=== PATIENT | male | born 1990 | race Caucasian/White ===

== ENCOUNTER 2017-01-08 09:10 | Emergency (ER) | payer SELFPAY ==
[2017-01-08] MEDS ORDERED: HYDROCODONE/ACETAMINOPHEN 5-325 MG 6 TAB/DSPK PO PRN (10:22)
--- NOTE | 2017-01-08 10:24 | ER Document Report ---
ED ENT - General Chief Complaint: Ear Pain Stated Complaint: LEFT EAR PAIN Time Seen by Provider: 01/08/17 10:05 Mode of Arrival: Ambulatory Information source: Patient Notes: 26-year-old male presents to ED for left ear and jaw pain. He states whenever he bites down on food or tries to sleep the pain gets worse. He states he cannot sleep due to the pain. There is no swelling to his tongue. He states he thought he had been biting his tongue but it is not swollen. There is no difficulty in breathing or swallowing. Patient speaking in full sentences. TRAVEL OUTSIDE OF THE [place] IN LAST 30 DAYS: No - HPI Onset: Last week Onset/Duration: Gradual Quality of pain: Achy, Dull Severity: Severe Pain Level: 5 Location of pain: Ears, Jaw Associated symptoms: Ear pain, Jaw pain. denies: Jaw swelling Similar symptoms previously: Yes Recently seen / treated by doctor: No - Related Data Allergies/Adverse Reactions: No Known Allergies Allergy (Verified 01/08/17 09:26) Past Medical History - General Information source: Patient - Social History Smoking Status: Current Every Day Smoker Cigarette use (# per day): Yes - 1-2 cigarettes a day Chew tobacco use (# tins/day): Yes - Half a can a day Smoking Education Provided: Yes - Less than 2 minutes Frequency of alcohol use: Heavy Drug Abuse: None Occupation: Construction Lives with: Grandparent(s) Family History: Arthritis, Hypertension, Malignancy. denies: CAD, COPD, CVA, DM , Hyperlipidemia, Thyroid Disfunction Patient has suicidal ideation: No Patient has homicidal ideation: No - Past Medical History Cardiac Medical History: Reports: None Pulmonary Medical History: Reports: Hx Pneumonia EENT Medical History: Reports: None Neurological Medical History: Reports: None Endocrine Medical History: Reports: None Renal/ Medical History: Reports: None Malignancy Medical History: Reports None GI Medical History: Reports: None Musculoskeltal Medical History: Reports Hx Musculoskeletal Trauma Skin Medical History: Reports None Psychiatric Medical History: Reports: None Traumatic Medical History: Reports: None Infectious Medical History: Reports: None Surgical Hx: Negative Past Surgical History: Reports: None - Immunizations Hx Diphtheria, Pertussis, Tetanus Vaccination: Yes Review of Systems - Review of Systems EENT: Ear pain, Other Cardiovascular: No symptoms reported Respiratory: No symptoms reported Gastrointestinal: No symptoms reported Genitourinary: No symptoms reported Male Genitourinary: No symptoms reported Musculoskeletal: No symptoms reported Skin: No symptoms reported Hematologic/Lymphatic: No symptoms reported Neurological/Psychological: No symptoms reported -: Yes All other systems reviewed and negative Physical Exam - Vital signs Vitals: Temp Pulse Resp BP Pulse Ox 98.5 F 73 16 112/77 98 01/08/17 09:20 01/08/17 09:20 01/08/17 09:20 01/08/17 09:20 01/08/17 09:20 Interpretation: Normal - General General appearance: Appears well, Alert - HEENT Head: Normocephalic, Atraumatic Eyes: Normal Pupils: PERRL Notes: Pain to the left TMJ with palpation or movement. Able to speak freely is able to chew with pain. - Respiratory Respiratory status: No respiratory distress Chest status: Nontender Breath sounds: Normal Chest palpation: Normal - Cardiovascular Rhythm: Regular Heart sounds: Normal auscultation Murmur: No - Abdominal Inspection: Normal Distension: No distension Bowel sounds: Normal Tenderness: Nontender Organomegaly: No organomegaly - Back Back: Normal, Nontender - Extremities General upper extremity: Normal inspection, Nontender, Normal color, Normal ROM , Normal temperature General lower extremity: Normal inspection, Nontender, Normal color, Normal ROM , Normal temperature, Normal weight bearing. No: Jose David's sign - Neurological Neuro grossly intact: Yes Cognition: Normal Orientation: AAOx4 Tonia Coma Scale Eye Opening: Spontaneous [place] Coma Scale Verbal: Oriented Tonia Coma Scale Motor: Obeys Commands [place] Coma Scale Total: 15 Speech: Normal Motor strength normal: LUE, RUE, LLE, RLE Sensory: Normal - Psychological Associated symptoms: Normal affect, Normal mood - Skin Skin Temperature: Warm Skin Moisture: Dry Skin Color: Normal Course - Re-evaluation Re-evalutation: 01/08/17 10:27 Patient instructed to use a mouthguard prepared like he was when he played football at nighttime to help help decrease his pain in his left jaw until he can go to an sulfate drier machine operator or dentist and have his jaw evaluated. Patient was given a [place] dispense pack today for his pain and encouraged to use ibuprofen during the day. - Vital Signs Vital signs: Temp Pulse Resp BP Pulse Ox 98.4 F 63 18 108/66 99 01/08/17 10:34 01/08/17 10:34 01/08/17 10:34 01/08/17 10:34 01/08/17 10:34 Discharge - Discharge Clinical Impression: left jaw pain, Otalgia of left ear Condition: Stable Disposition: HOME, SELF-CARE Additional Instructions: You were seen today for left jaw and ear pain. Your tongue is not swollen. I will give you a Everett dispense pack for your pain for the weekend but you need to follow-up with a dentist or sulfate drier machine operator to assess your jaw pain. Use the Everett at night and use ibuprofen during the day. Try using a mouthguard as we discussed to help with the pain. Oral Narcotic Medication You have been given a prescription for pain control. This medication is a narcotic. It's best taken with food, as nausea can result if taken on an empty stomach. Don't operate machinery or drive within six hours of taking this medication. Do not combine this medicine with alcohol, or with any medication which can cause sedation (such as cold tablets or sleeping pills) unless you get permission from the physician. Narcotics tend to cause constipation. If possible, drink plenty of fluids and eat a diet high in fiber and fruits. Ibuprofen Ibuprofen is an excellent, safe drug for pain control. In addition, it has potent antiinflammatory effects which are beneficial, especially in the treatment of injuries, arthritis, or tendonitis. It's best to take ibuprofen with food. Persons with ulcer disease or allergy to aspirin should notify their physician of this before taking ibuprofen. Take the medication exactly as prescribed. Don't take additional doses unless instructed to do so by your doctor. If you develop wheezing, shortness of breath, hives, faintness, stomach pain, vomiting, or dark black stools, return for re-evaluation at once. Ice Packs Apply ice packs frequently against the painful area. Many different schedules are recommended, such as "20 minutes on, 20 minutes off" or "one hour ice, two hours rest." If you need to work, you may need to go longer between ice treatments. You should plan to have the area ice packed AT LEAST one fourth of the time. The ice should be applied over the wrap, tape, or splint, or over a layer of cloth -- not directly against the skin. Some ice bags have a built-in cloth and can be put directly on the skin. FOLLOW-UP CARE: You have been referred for follow-up care to the dentists listed below. Call the dentists office for an appointment as you were instructed or within the next two days. If you experience worsening or a significant change in your symptoms, notify the physician immediately or return to the Emergency Department at any time for re-evaluation. [facility] [address] [place], [place] mornings, by appointment [facility] [address] [place] [address] [facility] [place] [address] [facility] [address] [facility] [address] [facility] [address] [email or web address] [address] [place] [address] Tuesday- 8:00am to 5:00 pm Will see patients from other [facility]. Charges based on income and family size and accepts Medicare, Medicaid, and Insurances Will pull molars [facility] [address] Hours of Operation 8:00 am - 4:30 pm weekdays The following dental offices accept Medicaid: [facility] Dr. Arevalo Dr. Adams Dr. Cat Dr. Johnson Simone Alvarado [place], and [facility] Dr. Villeda ([place]) Dr. Loyola ([place]) [facility] Drs. Gan and Isak ([place]) Dr. Galaviz ([place]) [facility] Dr. Lopez ([place]) Drs. Foster and ([place]) Medicaid Care Line
[2017-01-08 10:35] VITALS: BP 108/66
== END 2017-01-08 10:36 | disposition home or self-care (01) ==
LOC: ER 09:10
DX: H92.02 Otalgia, left ear (principal); R68.84 Jaw pain; F17.210 Nicotine dependence, cigarettes, uncomplicated
CPT/HCPCS: 99282

== ENCOUNTER 2017-06-17 18:19 | Emergency (ER) | payer SELFPAY ==
[2017-06-17 20:25] LABS: ABSOLUTE EOSINOPHILS # (AUTO) 0.1 10^3/uL (0.0-0.6); ABSOLUTE LYMPHOCYTES (AUTO) 2.6 10^3/uL (0.5-4.7); ABSOLUTE MONOCYTES (AUTO) 1.1 10^3/uL (0.1-1.4); ABSOLUTE NEUT (AUTO) 3.7 10^3/uL (1.7-8.2); BASOPHILS % (AUTO) 0.1 % (0-2); EOSINOPHILS % (AUTO) 0.9 % (0-6); HEMATOCRIT 48.7 % (37.9-51.0); LYMPHOCYTES % (AUTO) 35.1 % (13-45); MEAN CORPUSCULAR HEMOGLOBIN 33.6 pg (27.0-33.4); MEAN CORPUSCULAR HGB CONC 34.9 g/dL (32.0-36.0); MEAN CORPUSCULAR VOLUME 96 fl (80-97); MONOCYTES % (AUTO) 14.5 % (3-13); PLATELET COUNT 357 10^3/uL (150-450); RED BLOOD COUNT 5.06 10^6/uL (4.35-5.55); RED CELL DISTRIBUTION WIDTH 14.1 % (11.5-14.0); SEGMENTED NEUTROPHILS % (AUTO) 49.4 % (42-78); TOTAL CELLS COUNTED % (AUTO) 100 %; WHITE BLOOD COUNT 7.4 10^3/uL (4.0-10.5)
[2017-06-17 20:35] LABS: APPEARANCE,URINE CLEAR; BILIRUBIN,URINE NEGATIVE (NEGATIVE); COLOR,URINE STRAW; GLUCOSE, URINE NEGATIVE (NEGATIVE); KETONES,URINE NEGATIVE (NEGATIVE); LEUKOCYTE ESTERASE,URINE NEGATIVE (NEGATIVE); NITRITE,URINE NEGATIVE (NEGATIVE); PROTEIN,URINE NEGATIVE (NEGATIVE); URINE SPECIFIC GRAVITY 1.004
[2017-06-17 20:45] LABS: ALANINE AMINOTRANSFERASE 386 U/L (21-72); ALBUMIN 4.3 g/dL (3.5-5.0); ALCOHOL 195 mg/dL (NONE DETECTED); ALKALINE PHOSPHATASE 129 U/L (38-126); ANION GAP 11 (5-19); ASPARTATE AMINO TRANSFERASE 244 U/L (17-59); BILIRUBIN,DIRECT 0.8 mg/dL (0.0-0.4); BILIRUBIN,TOTAL 1.1 mg/dL (0.2-1.3); BLOOD UREA NITROGEN 7 mg/dL (7-20); CALCIUM 9.3 mg/dL (8.4-10.2); CARBON DIOXIDE 29 mmol/L (22-30); CHLORIDE 104 mmol/L (98-107); GLUCOSE 110 mg/dL (75-110); POTASSIUM 4.3 mmol/L (3.6-5.0); SODIUM 143.8 mmol/L (137-145)
[2017-06-17 20:53] LABS: ACETAMINOPHEN < 10 ug/mL (10-30); SALICYLATE < 1.0 mg/dL (2.0-20.0)
[2017-06-17 21:10] LABS: URINE AMPHETAMINES SCREEN NEGATIVE; URINE BARBITURATES SCREEN NEGATIVE; URINE BENZODIAZEPINES SCREEN NEGATIVE; URINE COCAINE SCREEN NEGATIVE; URINE MARIJUANA (THC) SCREEN NEGATIVE; URINE METHADONE SCREEN NEGATIVE; URINE PHENCYCLIDINE SCREEN NEGATIVE
--- NOTE | 2017-06-18 01:09 | ER Document Report ---
ED General - General Chief Complaint: Psych Problem Stated Complaint: THROAT LACERATION Time Seen by Provider: 06/17/17 19:27 TRAVEL OUTSIDE OF THE U.S. IN LAST 30 DAYS: No - HPI Patient complains to provider of: Suicide attempt Notes: Report given to the patient was found down arousable pneumonia after drinking a large amount of alcohol with a bandage around his neck. Removal of the band showed multiple superficial abrasions. Upon my evaluation patient is alert patient states he used a file to try to cut his throat and apparent suicide attempt. Patient states he is a recovering drug abuser patient states he is to use opiates. Patient states he has been very upset with his family over the last few days upon further questioning patient becomes very upset and agitated hyperverbal screaming and yelling stating that he has no hope. Patient was easily calmed down by offering him something to eat and drink. Patient otherwise denies any current medical issues. Denies any homicidal ideation. - Related Data Allergies/Adverse Reactions: No Known Allergies Allergy (Verified 01/08/17 09:26) Past Medical History - Social History Smoking Status: Current Some Day Smoker Chew tobacco use (# tins/day): No Frequency of alcohol use: Heavy Drug Abuse: Other Family History: Arthritis, Hypertension, Malignancy. denies: CAD, COPD, CVA, DM , Hyperlipidemia, Thyroid Disfunction Patient has suicidal ideation: Yes Patient has homicidal ideation: No Pulmonary Medical History: Reports: Hx Pneumonia Renal/ Medical History: Denies: Hx Peritoneal Dialysis Musculoskeltal Medical History: Reports Hx Musculoskeletal Trauma Psychiatric Medical History: Reports: Hx Depression - Immunizations Hx Diphtheria, Pertussis, Tetanus Vaccination: Yes Review of Systems - Review of Systems Constitutional: No symptoms reported EENT: No symptoms reported Cardiovascular: No symptoms reported Respiratory: No symptoms reported Gastrointestinal: No symptoms reported Genitourinary: No symptoms reported Male Genitourinary: No symptoms reported Musculoskeletal: No symptoms reported Skin: No symptoms reported Hematologic/Lymphatic: No symptoms reported Neurological/Psychological: Suicidal ideation -: Yes All other systems reviewed and negative Physical Exam - Vital signs Vitals: Temp Pulse Resp BP Pulse Ox 98.7 F 70 16 146/89 H 96 06/17/17 18:45 06/17/17 18:45 06/17/17 18:45 06/17/17 18:45 06/17/17 18:45 Interpretation: Normal - General General appearance: Appears well, Alert - HEENT Head: Normocephalic, Atraumatic Eyes: Normal Conjunctiva: Normal Cornea: Normal Pupils: PERRL Neck: Other - Examination of the anterior neck shows multiple superficial abrasions some going to the dermis but none going to the platysma. There is no hematoma or expansion of hematoma on evaluation of the patient. Patient's airway is intact patient is able tolerate food and drink at this time. No other abrasions are seen on examination. - Respiratory Respiratory status: No respiratory distress Chest status: Nontender Breath sounds: Normal Chest palpation: Normal - Cardiovascular Rhythm: Regular Heart sounds: Normal auscultation Murmur: No - Abdominal Inspection: Normal Distension: No distension Bowel sounds: Normal Tenderness: Nontender Organomegaly: No organomegaly - Back Back: Normal, Nontender - Extremities General upper extremity: Normal inspection, Nontender, Normal color, Normal ROM , Normal temperature General lower extremity: Normal inspection, Nontender, Normal color, Normal ROM , Normal temperature, Normal weight bearing. No: Jose David's sign - Neurological Neuro grossly intact: Yes Cognition: Normal Orientation: AAOx4 Tonia Coma Scale Eye Opening: Spontaneous Tonia Coma Scale Verbal: Oriented [place] Coma Scale Motor: Obeys Commands [place] Coma Scale Total: 15 Speech: Normal Motor strength normal: LUE, RUE, LLE, RLE Sensory: Normal - Psychological Associated symptoms: Normal affect, Normal mood - Skin Skin Temperature: Warm Skin Moisture: Dry Skin Color: Normal Course - Re-evaluation Re-evalutation: 06/18/17 01:07 Patient apparent suicide attempt multiple superficial lacerations to the neck. These were cleaned and Steri-Strips applied. Laboratory values that showed elevated alcohol in the patient's system. Otherwise laboratory values not show any signs of significant pathology. Patient does have elevated liver function tests which could be related to his alcohol use. Patient will be monitored here in ER otherwise medically cleared for psychiatric evaluation in the morning. Patient was placed on IVC paperwork. - Vital Signs Vital signs: Temp Pulse Resp BP Pulse Ox 98.7 F 78 18 129/90 H 99 06/17/17 18:45 06/17/17 22:18 06/17/17 22:18 06/17/17 22:18 06/17/17 22:18 - Laboratory Result Diagrams: 06/17/17 20:10 06/17/17 19:27 Laboratory results interpreted by me: 06/17/17 06/17/17 06/17/17 18:35 19:27 20:10 MCH 33.6 H RDW 14.1 H Monocytes % 14.5 H Direct Bilirubin 0.8 H AST 244 H ALT 386 H Alkaline Phosphatase 129 H Urine Urobilinogen 2.0 H Salicylates < 1.0 L Acetaminophen < 10 L Discharge - Discharge Clinical Impression: Suicide attempt, Superficial abrasions multiple Acute alcohol intoxication Qualifiers: Complication of substance-induced condition: uncomplicated Qualified Code(s): F10.929 - Alcohol use, unspecified with intoxication, unspecified Condition: Fair Disposition: PSYCH HOSP/UNIT
--- NOTE | 2017-06-18 09:01 | EKG REPORT ---
SEVERITY:- NORMAL ECG - SINUS RHYTHM : Confirmed by: Kye Burgos MD 18-Jun-2017 09:00:49
--- NOTE | 2017-06-18 09:58 | ER Document Report ---
Doctor's Note Notes: 06/18/17 09:57 26-year-old male who presents today being seen initially yesterday for alcohol intoxication as well as superficial lacerations/abrasions to his neck with transaminitis and suicidal ideations. Vital signs stable. Patient is calm and cooperative at this time. Pending psychiatric/psychological evaluation. 06/18/17 16:34 Still awaiting placement. Patient is still calm and cooperative.
--- NOTE | 2017-06-18 12:38 | PSYCHOLOGICAL NOTE ---
Psych Note - Psych Note Psych Note: Reason for consult: Suicidal ideation, attempt; IVC Consent permissions: mother, Chelly at [phone] Patient was brought to the emergency department via ambulance due to superficial abrasions and 2 lacerations to his neck which required steri- strips. Patient tried to commit suicide after drinking alcohol by taking a metal file to his neck multiple times. Patient reports that he is a recovering addict and has not been using opiates in the last year and a half; stating, "I' ve been clean for a long time." He claimed that there was no one reason for him to try and commit suicide, "it was a bunch of things." However, he disclosed family continually accusing him of relapsing "I have even bought 2 testing kits to prove" and stated any little thing he may do out of the "normal" the think he is high; "I can put mustard on a sandwich and normally not and they assume i did it because I am high." After speaking about his suicide attempt, he admits that he regrets it, but "does not see any other way." He reports that his family still views him as a drug addict and he has no social support. He only has one friend that is not a drug addict. "I thought the hard part would be the withdrawal...it isn't... it's the emotional...figuring out your true self without drugs" and understanding relationships. He does not have a job nor a vehicle for transportation. He currently lives with his "boss" but there are problems with that living arrangement. Patient denies any mental illness in his family. He did mention that he was on Prozac a while ago and had been to [facility] 3 times about 2.5 years ago. Patient was alert and oriented to person, time, place, and circumstance, with no obvious memory impairment. His attention seemed distracted as evidenced by his lack of eye contact throughout the evaluation. Speech was clear, but rapid. His affect was full and congruent with his mood which was irritable when talking about family. He was cooperative with staff and was more than eager to divulge information regarding his situation. There was noticeable psychomotor agitation present. Patient currently denies any suicidal or homicidal ideation. Both insight and judgment are poor. Medication Recommendations: Medication recommendations per [facility]'s contracted psychiatrist, MD Dolly, are as follows 1. Effexor 37.5 mg twice daily 2. BuSpar 10 mg twice daily 3. Vistaril 50 mg every 6 as needed Diagnosis: 292.84 (F11.24) Substance-Induced Depressive Disorder; withdrawal onset Opioid with hx of sever use 303.90 (F10.20) Alcohol Abuse Disorder; severe Impression/plan: Patient is recommended to continue under IVC. Patient discloses continued despondent and has little support system. Patient has been sober for proximally 1-1/2 years and stated "this is why 1 of 2 things occur they either go back on drugs or they kill themselves." Patient took a metal file and made multiple superficial abrasions and 2 lacerations to his neck which required steri-strips. Patient is able to demonstrate insight on his difficulties but is unable to use coping skills and control his impulses to keep himself safe. Patient will be re-evaluated. Dr. Voss was consulted on the care and management of this patient; attending physician is in agreement with recommendations and dispositions.
[2017-06-18] MEDS: HYDROXYZINE PAMOATE 50 MG CAPSULE PO SCH ×2 (15:31→18:10)
[2017-06-18] MEDS: BUSPIRONE HCL 10 MG TABLET PO SCH (18:11)
[2017-06-18] MEDS: VENLAFAXINE HCL 37.5 MG CAP.SR.24H PO SCH (18:11)
[2017-06-19] MEDS: HYDROXYZINE PAMOATE 50 MG CAPSULE PO SCH ×3 (08:33→17:53)
[2017-06-19] MEDS: BUSPIRONE HCL 10 MG TABLET PO SCH ×2 (10:07→17:53)
[2017-06-19] MEDS: VENLAFAXINE HCL 37.5 MG CAP.SR.24H PO SCH ×2 (10:07→17:53)
--- NOTE | 2017-06-19 10:52 | ER Document Report ---
Doctor's Note Notes: 06/19/17 10:52 26-year-old male who presents today being seen initially yesterday for alcohol intoxication as well as superficial lacerations/abrasions to his neck with transaminitis and suicidal ideations. Vital signs stable. Patient is calm and cooperative at this time. Psychiatry has seen and evaluated the patient and does not want to resend IVC. The [facility] and we are waiting for possibility of placement there tomorrow.
--- NOTE | 2017-06-19 12:29 | PSYCHOLOGICAL NOTE ---
<MANUEL DICKSON - Last Filed: 06/19/17 13:44> Psych Note - Psych Note Psych Note: Reason for consult: Suicidal ideation/ re-evaluation Consent: Mother, Chelly and Father Mikey Patient is a 26 year old male. Patient denies SI/HI. Patient reports he is no longer interested in going to [employer]. Patient reports [employer] is a trigger for him as it is a reminder of when he was addicted to heroin/ painkillers. Patient reports he has been sober in regards to Heroin and prescription pills ( not pre-scribed) for 2 consecutive years. Patient reports he had no intention in killing himself when he cut his throat multiple times, and stated that he intentionally used something "dull" because he wanted to show enough blood, but not cut deep enough to kill himself. Patient reports at the time he really wanted his family back in his life and thought this was the only way to get their attention and let them know that he was serious and really needed both his mom and dad back in his life. Patient reports he had a fall out with his parents due to prior substance use and continuously relapsing that he lost the trust and connection with his family. Patient reports that he got his life together and stayed sober and even went through great lengths such as living in an abandoned house so he would not be around people/ old friends who were still using. Patient reports that he had several friends from substance use and he intends on not dying because he wants to live. Patient reports he would do "it" [ referring to cutting his neck] again if it got his family back in his life because he is happy that his mom and dad are talking to him again, and happy that other extended family members ( and log cutter) called to check on him because he feels cared for. Patient reports his dad has a house for him under his dad's name and as well as farm land , that is what he needed. Patient reports he wants his family to know that his drug screen results came back clean, and that he has been sober so they could trust him again so that he could hopefully move back into his home. Patient states that he was previously kicked out because him and his dad were fighting a lot. Patient reports he wants his family's emotional and moral support not just material objects. Patient reports he is willing to go to treatment. Patient reports when his family does not support him he feels that there is no hope. Collateral Information: mother, Chelly at [phone], Father: Mikey [phone] Patient's mother reports patient has not been honest with the family. Patient's mother reports she believes that if patient actually wanted to kill himself he would have known what to do and would have done it. Patient's mother reports she sees this as a way to get their [ her and her ] attention. Patient's mother reports her and her have been dealing with patient's addiction for 14 years since he was 13 years old. Patient's mother reports that recently patient asked to move back in with them and when they refused he became upset. Patient's mother reports she has spoken with him on the phone and been aware of his whereabouts but does not want him back in the home due to the things he have done in the past to include an incident [place] time of 2016. Patient's mother reports patient has not been clean for 2 years as he stated to hospital staff . Patient's mother reports she believes patient is self-medicating through alcohol use and any other drug, and wants him to seek treatment, and be safe before coming home. Patient's mother reports patient behaves "erratically" . Patient's father reports patient has not been sober as long as patient has told mental health staff, he picked patient up at a store and patient admitted to [facility]. Patient's father reports that he feels patient just wants to come home because he has been kicked out numerous times and that patient is aware his parents are not going to enable him anymore so he did this to have his parents allow him home. Patient's father reports the conditions for him to come home would be to get serious residential treatment where he can be certain that he is changed. Patient's father reports he does not think patient would be honest or stay sober. Patient's father reports patient spent 3 months in custodial and stated that he was forced to be clean then and that it was the most peace their family has had in years. Medication Recommendations: Medication recommendations per [facility]'s contracted psychiatrist, MD Dolly, are as follows 1. Effexor 37.5 mg twice daily 2. BuSpar 10 mg twice daily 3. Vistaril 50 mg every 6 as needed Diagnosis: 292.84 (F11.24) Substance-Induced Depressive Disorder; withdrawal onset Opioid with hx of sever use 303.90 (F10.20) Alcohol Abuse Disorder; severe Impression/plan: Patient is recommended to continue under IVC due to patient meeting criteria [place] GS 122C. Currently seeking inpatient placement. <SYD ADHIKARI - Last Filed: 06/20/17 16:22> Psych Note - Psych Note Psych Note: Patient continues to meet criteria as he attempted to kill himself by cutting his neck while under the influence of benzodiazepines, and has had difficulty with being sober. Patient is considered at high risk for completion of suicide without ongoing inpatient psychiatric treatment.
[2017-06-20] MEDS: HYDROXYZINE PAMOATE 50 MG CAPSULE PO SCH ×2 (00:14→11:32)
--- NOTE | 2017-06-20 10:14 | ER Document Report ---
Doctor's Note Notes: 06/20/17 10:11 Rounds: Chart reviewed. Patient interviewed. Patient says that he was drinking heavily and had suicidal thoughts and attempted to cut his throat. Patient says that he drinks heavily frequently. Alcohol level was 195. His liver function tests are slightly elevated and he was made aware of that finding. He is alert and answers questions appropriately and says he does not feel suicidal at this time. Vital signs are all normal. Patient appears to be medically stable for transfer or discharge. Arlet Mo MD
[2017-06-20] MEDS: VENLAFAXINE HCL 37.5 MG CAP.SR.24H PO SCH (11:32)
[2017-06-20] MEDS: BUSPIRONE HCL 10 MG TABLET PO SCH (11:32)
--- NOTE | 2017-06-20 11:55 | PSYCHOLOGICAL NOTE ---
Psych Note - Psych Note Psych Note: Contact permissions: mother, Chelly at [phone], Father: Mikey [phone] Patient is a 26 year old male. Patient reports he wants to leave the ED. Patient reports he changed his mind about going to a psychiatric facility to treat his depression and substance use. Patient reports he is tired of being in the ED under IVC. Patient stated " all I did was cut my throat, that's all I did it ain't no big deal". Patient reports that he has his aunt that has a connection to help him get into a place called [facility] which is a [facility] treatment facility. Patient reports he does not want to lose his job because he is in the hospital. Patient stated " I'm going to lose everything here, I don't want to wait for treatment". Patient denies SI/HI. Clinician observed patient was upset due to having to wait for a placement in a psychiatric facility. Patient's affect is flat, with a labile mood. Medication Recommendations: Medication recommendations per [facility]'s contracted psychiatrist, MD Dolly, are as follows 1. Effexor 37.5 mg twice daily 2. BuSpar 10 mg twice daily 3. Vistaril 50 mg every 6 as needed Diagnosis: 292.84 (F11.24) Substance-Induced Depressive Disorder; withdrawal onset Opioid with hx of sever use 303.90 (F10.20) Alcohol Abuse Disorder; severe Impression/plan: Patient is recommended to continue under IVC due to patient meeting criteria [place] GS 122C. Currently seeking inpatient placement. Consulted with Dr. Voss regarding the management and care of patient.
[2017-06-20 16:46] VITALS: BP 141/84
== END 2017-06-20 16:45 ==
LOC: ER 18:19
DX: F10.929 Alcohol use, unspecified with intoxication, unspecified (principal); S11.91XA Laceration without foreign body of unspecified part of neck, initial encounter; F17.200 Nicotine dependence, unspecified, uncomplicated; X83.8XXA Intentional self-harm by other specified means, initial encounter
CPT/HCPCS: 93005; 99285; 36415; 80307 ×4; 85025; 80053; 81001; 93010; J3490 ×3

== ENCOUNTER 2018-01-12 07:30 | Emergency (ER) | payer SELFPAY ==
[2018-01-12] MEDS ORDERED: DEXAMETHASONE 4 MG TABLET PO ONE (08:12)
[2018-01-12] MEDS ORDERED: PENICILLIN G BENZATHINE 1.2 MILLION UNIT/2 ML DISP.SYRIN IM ONE (08:12)
[2018-01-12] MEDS ORDERED: LIDOCAINE 2% VISCOUS SOLN 20 ML UDCUP PO ONE (08:12)
[2018-01-12] MEDS ORDERED: HYDROCODONE/ACETAMINOPHEN 5-325 MG TABLET PO ONE (08:14)
--- NOTE | 2018-01-12 08:16 | ER Document Report ---
HPI - HPI Patient complains to provider of: sore throat Onset: Other - 2 d Onset/Duration: Persistent Quality of pain: Achy Pain Level: 4 Context: Patient presents complaining of sore throat for the past 2 days. Patient denies any difficulty breathing or swallowing. Patient denies any fever. Associated Symptoms: Sore throat. denies: Earache, Fever, Headache Exacerbated by: Denies Relieved by: Denies Similar symptoms previously: No Recently seen / treated by doctor: No - ROS ROS below otherwise negative: Yes Systems Reviewed and Negative: Yes All other systems reviewed and negative - CONSTITUTIONAL Constitutional: DENIES: Fever - EENT EENT: REPORTS: Sore Throat - Right tonsil, Ear Pain - RESPIRATORY Respiratory: DENIES: Trouble Breathing, Coughing - GASTROINTESTINAL Gastrointestinal: DENIES: Nausea, Patient vomiting - MUSCULOSKELETAL Musculoskeletal: DENIES: Neck Pain - DERM Skin Color: Normal Skin Problems: None Past Medical History - General Information source: Patient - Social History Smoking Status: Current Every Day Smoker Chew tobacco use (# tins/day): Yes - occassional Frequency of alcohol use: Daily Drug Abuse: None Occupation: heavy equipment technician Lives with: Family Family History: Arthritis, Hypertension, Malignancy. denies: CAD, COPD, CVA, DM , Hyperlipidemia, Thyroid Disfunction Patient has suicidal ideation: No Patient has homicidal ideation: No Pulmonary Medical History: Reports: Hx Pneumonia Renal/ Medical History: Denies: Hx Peritoneal Dialysis Musculoskeletal Medical History: Reports Hx Musculoskeletal Trauma Psychiatric Medical History: Reports: Hx Depression Surgical Hx: Negative - Immunizations Hx Diphtheria, Pertussis, Tetanus Vaccination: Yes Vertical Provider Document - CONSTITUTIONAL Agree With Documented VS: Yes Exam Limitations: No Limitations General Appearance: WD/WN, No Apparent Distress - INFECTION CONTROL TRAVEL OUTSIDE OF THE [place] IN LAST 30 DAYS: No - HEENT HEENT: Atraumatic, Normocephalic, Pharyngeal Exudate, Pharyngeal Tenderness, Pharyngeal Erythema. negative: Tympanic Membrane Red, Tympanic Membrane Bulging - NECK Neck: Normal Inspection, Supple. negative: Lymphadenopathy-Left, Lymphadenopathy-Right - RESPIRATORY Respiratory: Breath Sounds Normal, No Respiratory Distress, Chest Non-Tender - CARDIOVASCULAR Cardiovascular: Regular Rate, Regular Rhythm, No Murmur - BACK Back: Normal Inspection - MUSCULOSKELETAL/EXTREMETIES Musculoskeletal/Extremeties: RENE BRASHER - NEURO Level of Consciousness: Awake, Alert, Appropriate Motor/Sensory: No Motor Deficit - DERM Integumentary: Warm, Dry, No Rash Course - Re-evaluation Re-evalutation: 01/12/18 08:13 Patient's respirations even and unlabored, no potential airway compromise. Patient's right tonsil looks as though it may have had an abscess that spontaneously drained. No obvious peritonsillar cellulitis - Vital Signs Vital signs: Temp Pulse Resp BP Pulse Ox 97.4 F 81 14 131/78 H 99 01/12/18 07:34 01/12/18 07:34 01/12/18 07:34 01/12/18 07:34 01/12/18 07:34 Discharge - Discharge Clinical Impression: Tonsillitis Condition: Stable Disposition: HOME, SELF-CARE Instructions: Corticosteroid Medication ([facility]), Use of [id number]-Nqmistw Ibuprofen ([facility]), Tonsillitis ([facility]) Additional Instructions: Return immediately for any new or worsening symptoms Followup with your primary care provider, call tomorrow to make a followup appointment Forms: Smoking Cessation Education, Return to Work Referrals: [facility] [Provider Group] - Follow up as needed
[2018-01-12 08:50] VITALS: BP 128/79
== END 2018-01-12 08:50 | disposition home or self-care (01) ==
LOC: ER 07:30
DX: J03.90 Acute tonsillitis, unspecified (principal); F17.200 Nicotine dependence, unspecified, uncomplicated
CPT/HCPCS: 99283; 96372; J3490; J0561

== ENCOUNTER 2018-01-13 07:53 | Emergency (ER) | payer SELFPAY ==
--- NOTE | 2018-01-13 09:32 | ER Document Report ---
ED ENT - General Chief Complaint: Sore Throat Stated Complaint: SORE THROAT, SWELLING Time Seen by Provider: 01/13/18 09:16 Notes: Patient was seen here yesterday for sore throat. States it was on the right side. Continues to hurt on the right side but now has moved to the left side. Hurts to swallow. Now having body aches and fever. Denies any rash. Was discharged on symptomatic care yesterday. TRAVEL OUTSIDE OF THE [place] IN LAST 30 DAYS: No - HPI Patient complains to provider of: Throat problem Onset: Yesterday Onset/Duration: Gradual, Worse Quality of pain: Achy Severity: Moderate Pain Level: 3 - Related Data Allergies/Adverse Reactions: No Known Allergies Allergy (Verified 01/13/18 07:54) Past Medical History - General Information source: Patient - Social History Smoking Status: Current Every Day Smoker Chew tobacco use (# tins/day): Yes - occasional Frequency of alcohol use: daily Drug Abuse: None Lives with: Family Family History: Arthritis, Hypertension, Malignancy. denies: CAD, COPD, CVA, DM , Hyperlipidemia, Thyroid Disfunction Patient has suicidal ideation: No Patient has homicidal ideation: No Pulmonary Medical History: Reports: Hx Pneumonia Renal/ Medical History: Denies: Hx Peritoneal Dialysis Musculoskeletal Medical History: Reports Hx Musculoskeletal Trauma Psychiatric Medical History: Reports: Hx Depression - Immunizations Hx Diphtheria, Pertussis, Tetanus Vaccination: Yes Review of Systems - Review of Systems Notes: Constitutional: denies: Chills, Diaphoresis,Malaise, Weakness. Patient does complain of fever and body aches EENT: denies: Eye discharge, Blurred vision, Tearing, Double vision, Nose congestion, Nose discharge,. Patient does complain of a sore throat and swollen tonsils Cardiovascular: denies: Palpitations, Heart racing, Orthopnea, Dyspnea, Chest pain Respiratory: denies: Cough, Hurts to breathe, Wheezing, Shortness of breath Gastrointestinal: denies: Abdominal pain, Diarrhea, Nausea, Vomiting, Black stools, bright red blood in stool Genitourinary: denies: Burning, Dysuria, Discharge, Frequency, Flank pain, Hematuria Musculoskeletal: denies: Joint pain, Joint swelling,. Does complain of joint pain and muscle aches easily. Hematologic/Lymphatic: denies: Anemia, Easy bleeding, Easy bruising, Blood clots Neurological/Psychological: denies: Confusion, Dementia, Depression, Loss of consciousness Skin: No lesions, no masses, no skin breakdown, no abscesses Physical Exam - Vital signs Vitals: Temp Pulse Resp BP Pulse Ox 97.7 F 84 16 121/78 98 01/13/18 08:01 01/13/18 08:01 01/13/18 08:01 01/13/18 08:01 01/13/18 08:01 Interpretation: Normal - General General appearance: Appears well, Alert - HEENT Head: Normocephalic, Atraumatic Eyes: Normal Pupils: PERRL Mucous membranes: Normal Pharynx: Erythema, Tonsillar hypertrophy. No: Exudate, Peritonsillar abscess, Retropharyngeal abscess, Uvular edema Neck: Normal, Shotty nodes - Respiratory Respiratory status: No respiratory distress Chest status: Nontender Breath sounds: Normal Chest palpation: Normal - Cardiovascular Rhythm: Regular Heart sounds: Normal auscultation Murmur: No - Abdominal Inspection: Normal Distension: No distension Bowel sounds: Normal Tenderness: Nontender Organomegaly: No organomegaly - Back Back: Normal, Nontender - Extremities General upper extremity: Normal inspection, Nontender, Normal color, Normal ROM , Normal temperature General lower extremity: Normal inspection, Nontender, Normal color, Normal ROM , Normal temperature, Normal weight bearing. No: Jose David's sign - Neurological Neuro grossly intact: Yes Cognition: Normal Orientation: AAOx4 [place] Coma Scale Eye Opening: Spontaneous [place] Coma Scale Verbal: Oriented [place] Coma Scale Motor: Obeys Commands [place] Coma Scale Total: 15 Speech: Normal Motor strength normal: LUE, RUE, LLE, RLE Sensory: Normal - Psychological Associated symptoms: Normal affect, Normal mood - Skin Skin Temperature: Warm Skin Moisture: Dry Skin Color: Normal Course - Re-evaluation Re-evalutation: 01/13/18 09:44 Patient does have moderate erythema. No obvious exudates. States it is getting worse. At this time I have given him an option for throat swab versus empiric treating versus watch and wait. We will send him home with a prescription for some antibiotics at this time. - Vital Signs Vital signs: Temp Pulse Resp BP Pulse Ox 97.8 F 77 16 123/90 H 97 01/13/18 09:58 01/13/18 09:58 01/13/18 08:01 01/13/18 09:58 01/13/18 09:58 Discharge - Discharge Clinical Impression: Pharyngitis Qualifiers: Pharyngitis/tonsillitis etiology: unspecified etiology Qualified Code(s): J02.9 - Acute pharyngitis, unspecified Condition: Good Disposition: HOME, SELF-CARE Instructions: Oral Narcotic Medication ([facility]), Penicillin V K ([facility]) Additional Instructions: Return immediately if you develop worsening symptoms, difficulty breathing, difficulty swallowing or other concerns. Prescriptions: Hydrocodone/Acetaminophen [[place] 5-325 mg Tablet] 1 tab PO BID PRN 3 Days #6 tablet PRN Reason: Penicillin V Potassium [Penicillin Vk 500 mg Tablet] 500 mg PO QID 7 Days #28 tablet
[2018-01-13 10:00] VITALS: BP 123/90
== END 2018-01-13 09:58 | disposition home or self-care (01) ==
LOC: ER 07:53
DX: J02.9 Acute pharyngitis, unspecified (principal); R50.9 Fever, unspecified; M25.50 Pain in unspecified joint; M79.1 Myalgia; F17.200 Nicotine dependence, unspecified, uncomplicated; F17.220 Nicotine dependence, chewing tobacco, uncomplicated
CPT/HCPCS: 99283

== ENCOUNTER 2018-01-15 20:13 | Emergency (ER) | payer SELFPAY ==
[2018-01-15 21:41] LABS: ABSOLUTE BASOPHILS # (AUTO) 0.1 10^3/uL (0.0-0.2); ABSOLUTE EOSINOPHILS # (AUTO) 0.1 10^3/uL (0.0-0.6); ABSOLUTE LYMPHOCYTES (AUTO) 1.5 10^3/uL (0.5-4.7); ABSOLUTE MONOCYTES (AUTO) 1.4 10^3/uL (0.1-1.4); ABSOLUTE NEUT (AUTO) 5.1 10^3/uL (1.7-8.2); BASOPHILS % (AUTO) 0.8 % (0-2); EOSINOPHILS % (AUTO) 0.8 % (0-6); HEMATOCRIT 48.8 % (37.9-51.0); HEMOGLOBIN 17.4 g/dL (13.5-17.0); LYMPHOCYTES % (AUTO) 18.2 % (13-45); MEAN CORPUSCULAR HGB CONC 35.6 g/dL (32.0-36.0); MEAN CORPUSCULAR VOLUME 96 fl (80-97); MONOCYTES % (AUTO) 16.7 % (3-13); PLATELET COUNT 372 10^3/uL (150-450); RED BLOOD COUNT 5.11 10^6/uL (4.35-5.55); RED CELL DISTRIBUTION WIDTH 13.2 % (11.5-14.0); SEGMENTED NEUTROPHILS % (AUTO) 63.5 % (42-78); TOTAL CELLS COUNTED % (AUTO) 100 %; WHITE BLOOD COUNT 8.1 10^3/uL (4.0-10.5)
[2018-01-15 21:46] LABS: APPEARANCE,URINE SLIGHTLY-CLOUDY; BILIRUBIN,URINE NEGATIVE (NEGATIVE); COLOR,URINE YELLOW; GLUCOSE, URINE NEGATIVE (NEGATIVE); KETONES,URINE NEGATIVE (NEGATIVE); LEUKOCYTE ESTERASE,URINE NEGATIVE (NEGATIVE); NITRITE,URINE NEGATIVE (NEGATIVE); PROTEIN,URINE NEGATIVE (NEGATIVE); URINE SPECIFIC GRAVITY 1.019
[2018-01-15 22:06] LABS: ALANINE AMINOTRANSFERASE 149 U/L (21-72); ALBUMIN 4.5 g/dL (3.5-5.0); ALKALINE PHOSPHATASE 85 U/L (38-126); ANION GAP 11 (5-19); ASPARTATE AMINO TRANSFERASE 110 U/L (17-59); BILIRUBIN,DIRECT 0.5 mg/dL (0.0-0.4); BILIRUBIN,TOTAL 1.2 mg/dL (0.2-1.3); BLOOD UREA NITROGEN 8 mg/dL (7-20); CALCIUM 9.9 mg/dL (8.4-10.2); CARBON DIOXIDE 27 mmol/L (22-30); CHLORIDE 102 mmol/L (98-107); GLUCOSE 97 mg/dL (75-110); LIPASE 41.6 U/L (23-300); POTASSIUM 4.5 mmol/L (3.6-5.0); SODIUM 140.4 mmol/L (137-145); TOTAL PROTEIN 7.7 g/dL (6.3-8.2)
--- NOTE | 2018-01-16 04:05 | RADIOLOGY REPORT (SQ) ---
EXAM DESCRIPTION: US ABDOMEN LIMITED COMPLETED DATE/TME: 01/16/2018 02:09 CLINICAL HISTORY: abd pain COMPARISON: None. TECHNIQUE: Real-time sonographic images of the right upper abdomen were obtained using a curved multihertz transducer. FINDINGS: Pancreas: The visualized portions of the pancreas are unremarkable. Vascular: The visualized portions of the aorta and IVC are unremarkable. Liver: The liver has normal contour and increased echogenicity. Hepatopedal flow in the portal vein. Findings confirmed with color and spectral Doppler imaging. The common bile duct measures 0.4 cm. Gallbladder: The gallbladder has a normal appearance. No gallstones identified. No wall thickening or pericholecystic fluid. Right Kidney: The right kidney measures 12.0 cm in length. No hydronephrosis, solid renal mass, or shadowing calculi. IMPRESSION: 1. No gallstones identified. 2. Hepatic steatosis.
[2018-01-16] MEDS ORDERED: MAG HYDROX/AL HYDROX/SIMETH SUSP 30 ML UDCUP PO ONE (04:54)
[2018-01-16] MEDS ORDERED: LIDOCAINE 2% VISCOUS SOLN 20 ML UDCUP PO ONE (04:54)
[2018-01-16] MEDS ORDERED: METOCLOPRAMIDE HCL ORAL SOLN 10 MG/10 ML UDCUP PO ONE (04:54)
[2018-01-16 05:16] VITALS: BP 130/103
[2018-01-16] MEDS ORDERED: METOCLOPRAMIDE HCL ORAL SOLN 10 MG/10 ML UDCUP ONE (05:31)
--- NOTE | 2018-01-16 06:51 | ER Document Report ---
HPI - HPI Pain Level: 5 Notes: Patient is a 27-year-old male with a history of acid reflux who presents to the ED complaining of exacerbation of his acid reflux and increased pain in his stomach anytime he eats or drinks. Patient states that his symptoms have been ongoing for the last 3 days. Patient states that he has not taken any medicines for symptoms and has not been evaluated in the past for acid reflux. He denies any drug allergies. Patient states that he is a moderate alcohol drinker and does smoke cigarettes as well. Pain does not radiate. Patient states that he has occasional nausea without vomiting. He is urinating normally and having normal bowel movements. Denies any headache, fever, URI, sore throat, chest pain, palpitations, syncope, cough, shortness of breath, wheeze, dyspnea, vomiting/diarrhea, urinary retention, dysuria, hematuria, back pain, loss of control of bowel or bladder, numbness/tingling, saddle anesthesia , muscle paralysis/weakness, or rash. - ROS Systems Reviewed and Negative: Yes All other systems reviewed and negative Past Medical History - Social History Smoking Status: Current Every Day Smoker Family History: Arthritis, Hypertension, Malignancy. denies: CAD, COPD, CVA, DM , Hyperlipidemia, Thyroid Disfunction Pulmonary Medical History: Reports: Hx Pneumonia Renal/ Medical History: Denies: Hx Peritoneal Dialysis Musculoskeletal Medical History: Reports Hx Musculoskeletal Trauma Psychiatric Medical History: Reports: Hx Depression - Immunizations Hx Diphtheria, Pertussis, Tetanus Vaccination: Yes Vertical Provider Document - CONSTITUTIONAL Agree With Documented VS: Yes Notes: PHYSICAL EXAMINATION: GENERAL: Well-appearing, well-nourished and in no acute distress. HEAD: Atraumatic, normocephalic. EYES: Pupils equal round and reactive to light, extraocular movements intact, sclera anicteric, conjunctiva are normal. ENT: Nares patent and without discharge. oropharynx clear without exudates. No tonsilar hypertrophy or erythema. Moist mucous membranes. NECK: Normal range of motion, supple without lymphadenopathy LUNGS: Breath sounds clear to auscultation bilaterally and equal. No wheezes rales or rhonchi. HEART: Regular rate and rhythm without murmurs, rubs, gallops. ABDOMEN: Soft, nondistended abdomen. No guarding, no rebound. No masses appreciated. Normal bowel sounds present. No CVA tenderness bilaterally. + tenderness to the epigastrum, correlates with pain described. Parker neg. No tenderness to lower abd b/l. Musculoskeletal: FROM to passive/active. Strength 5+/5. Extremities: No cyanosis, clubbing, or edema b/l. Peripheral pulses 2+. Capillary refill less than 3 seconds. NEUROLOGICAL: Normal speech, normal gait. PSYCH: Normal mood, normal affect. SKIN: Warm, Dry, normal turgor, no rashes or lesions noted. - INFECTION CONTROL TRAVEL OUTSIDE OF THE [place] IN LAST 30 DAYS: No Course - Re-evaluation Re-evalutation: 01/16/18 06:52 Patient is an afebrile, well-hydrated, 27-year-old male who presents to the ED with epigastric pain, suspect gastritis versus GERD versus ulcer. Vitals are acceptable without any significant tachycardia, tachypnea, or hypoxia. PE is otherwise unremarkable. Patient is nontoxic-appearing. CBC, CMP, lipase were grossly unremarkable aside from mild elevations in LFT. Right upper quadrant ultrasound was unremarkable aside from hepatic steatosis. I suspect that the fatty liver along with his moderate alcohol consumption is causing his elevation in LFTs. Patient was given a GI cocktail which did improve symptoms. No further labs or imaging warranted at this time based on H&P. Low suspicion /risk for acute appendicitis, bowel obstruction, acute cholecystitis, perforated diverticulitis, incarcerated hernia, pancreatitis, perforated ulcer, peritonitis, sepsis, testicular torsion, or other systemic emergent condition at this time. Patient is aware that his condition can change from initial presentation and he needs to monitor symptoms closely and seek medical attention if any acute changes. I will send him home with a prescription for Carafate, omeprazole, and Zofran. Conservative measures otherwise for symptoms. Recheck with PCM in 2-3 days. Consider consult with a tanbark laborer for endoscopy and further evaluation. Return to the ED with any worsening/concerning symptoms otherwise as reviewed in discharge. Patient is in agreement. - Vital Signs Vital signs: Temp Pulse Resp BP Pulse Ox 99.6 F 116 H 18 130/103 H 97 01/16/18 05:15 01/16/18 05:15 01/16/18 03:10 01/16/18 05:15 01/16/18 05:15 - Laboratory Result Diagrams: 01/15/18 21:21 01/15/18 21:21 Laboratory results interpreted by me: 01/15/18 01/15/18 01/15/18 21:21 21:21 21:21 Hgb 17.4 H MCH 34.0 H Monocytes % 16.7 H Direct Bilirubin 0.5 H AST 110 H ALT 149 H Urine Urobilinogen 4.0 H Discharge - Discharge Clinical Impression: Epigastric pain Condition: Stable Disposition: HOME, SELF-CARE Instructions: Evaluation of Upper Abdominal Pain ([facility]) Additional Instructions: Maintain adequate fluid and food intake Avoid spices, caffeine, smoking, alcohol consumption Zofran as needed Medicines as directed Monitor for any worsening symptoms Make sure you are staying hydrated enough to urinate and have normal BM's Recheck with your PCM in 2-3 days Schedule an appointment with gastroenterology for further evaluation and management and consideration of endoscopy if warranted Return to the ED with any worsening symptoms and/or development of fever, headache, chest pain, palpitations, syncope, shortness of breath, trouble breathing, abdominal pain, n/v/d, blood in stool/urine, weakness, or other worsening symptoms that are concerning to you. Prescriptions: Omeprazole 20 mg PO DAILY #30 tablet. Ondansetron [Zofran Odt 4 mg Tablet] 1 - 2 tab PO Q4H PRN #15 tab.rapdis PRN Reason: For Nausea/Vomiting Sucralfate [Carafate] 1 gm PO QID PRN #420 ml PRN Reason: Forms: Elevated Blood Pressure, Smoking Cessation Education Referrals: ZAID DOWLING MD [ACTIVE STAFF] - Follow up in 1 week
== END 2018-01-16 07:17 | disposition home or self-care (01) ==
LOC: ER 20:13
DX: R10.13 Epigastric pain (principal); F17.210 Nicotine dependence, cigarettes, uncomplicated; R11.0 Nausea; K76.0 Fatty (change of) liver, not elsewhere classified; R79.89 Other specified abnormal findings of blood chemistry
CPT/HCPCS: 99284; 36415; 83690; 85025; 80053; 81001; 76705; J3490

== ENCOUNTER 2018-01-19 18:34 | Emergency (ER) | payer SELFPAY ==
[2018-01-19] MEDS ORDERED: NORMAL SALINE 1000 ML 1,000 ML IV ONE (20:04)
--- NOTE | 2018-01-19 20:10 | ER Document Report ---
ED Medical Screen (RME) - General Chief Complaint: Dizziness Stated Complaint: LIGHTHEADED,DIZZY,NAUSEA Time Seen by Provider: 01/19/18 19:56 Notes: Pt. stated he is in the ED feeling dizzy and lightheaded. Stated he has not been able to eat or drink anything for the last 5 days due to epigastric pain. States vomit intermittently has streaked blood, denies blood in stool. Stated that he is scheduled for endoscopy in the morning. Stated the GI cocktail does not help him at all and he wants to leave AMA if that is all we are going to do for him. Stated he will wait for the endoscopy tomorrow morning. Discussed with Pt. the need for blood work and urine to see if the Pt. is dehydrated and screen for electrolyte abnormalities. Stated he would then stay for IV rehydration but did not want pain medication because they don't ever work for him. Stated Ally told him his liver was "fine" then stated Rui Spencer told him his liver was "really bad." Pt. states he wants answers. Exam: tenderness epigastric region. no RUQ or LUQ pain. I have greeted and performed a rapid initial assessment of this patient. A comprehensive ED assessment and evaluation of the patient, analysis of test results and completion of the medical decision making process will be conducted by additional ED providers. TRAVEL OUTSIDE OF THE [place] IN LAST 30 DAYS: No - Related Data Allergies/Adverse Reactions: No Known Allergies Allergy (Verified 01/19/18 16:21) Past Medical History - Social History Chew tobacco use (# tins/day): No Drug Abuse: None - Past Medical History Cardiac Medical History: Denies: Hx Coronary Artery Disease, Hx Heart Attack, Hx Hypertension Pulmonary Medical History: Reports: Hx Pneumonia Denies: Hx Asthma, Hx Bronchitis, Hx COPD Neurological Medical History: Denies: Hx Cerebrovascular Accident, Hx Seizures Renal/ Medical History: Denies: Hx Peritoneal Dialysis Musculoskeltal Medical History: Denies Hx Arthritis, Reports Hx Musculoskeletal Trauma Psychiatric Medical History: Reports: Hx Depression - Immunizations Hx Diphtheria, Pertussis, Tetanus Vaccination: Yes Physical Exam - Vital signs Vitals: Temp Pulse Resp BP Pulse Ox 98.5 F 107 H 16 125/73 98 01/19/18 19:11 01/19/18 19:11 01/19/18 19:11 01/19/18 19:11 01/19/18 19:11 Course - Vital Signs Vital signs: Temp Pulse Resp BP Pulse Ox 98.5 F 107 H 16 125/73 98 01/19/18 19:11 01/19/18 19:11 01/19/18 19:11 01/19/18 19:11 01/19/18 19:11 Doctor's Discharge - Discharge Referrals: KAYLA FOY RELOCATION COORDINATOR [Primary Care Provider] - Follow up as needed
[2018-01-19 20:53] LABS: HEMATOCRIT 51.9 % (37.9-51.0); HEMOGLOBIN 18.3 g/dL (13.5-17.0); MEAN CORPUSCULAR HEMOGLOBIN 33.5 pg (27.0-33.4); MEAN CORPUSCULAR HGB CONC 35.2 g/dL (32.0-36.0); MEAN CORPUSCULAR VOLUME 95 fl (80-97); PLATELET COUNT 419 10^3/uL (150-450); RED BLOOD COUNT 5.45 10^6/uL (4.35-5.55); RED CELL DISTRIBUTION WIDTH 13.1 % (11.5-14.0); WHITE BLOOD COUNT 7.3 10^3/uL (4.0-10.5)
[2018-01-19 21:13] LABS: ALANINE AMINOTRANSFERASE 121 U/L (21-72); ALBUMIN 4.9 g/dL (3.5-5.0); ALKALINE PHOSPHATASE 102 U/L (38-126); ANION GAP 13 (5-19); ASPARTATE AMINO TRANSFERASE 93 U/L (17-59); BILIRUBIN,DIRECT 0.8 mg/dL (0.0-0.4); BILIRUBIN,TOTAL 1.9 mg/dL (0.2-1.3); BLOOD UREA NITROGEN 18 mg/dL (7-20); CALCIUM 10.5 mg/dL (8.4-10.2); CARBON DIOXIDE 27 mmol/L (22-30); CHLORIDE 100 mmol/L (98-107); GLUCOSE 105 mg/dL (75-110); LIPASE 62.4 U/L (23-300); POTASSIUM 5.2 mmol/L (3.6-5.0); SODIUM 140.3 mmol/L (137-145); TOTAL PROTEIN 8.7 g/dL (6.3-8.2)
[2018-01-19 21:32] LABS: ABSOLUTE LYMPHOCYTES# (MANUAL) 3.1 10^3/uL (0.5-4.7); ABSOLUTE MONOCYTES # (MANUAL) 0.6 10^3/uL (0.1-1.4); ABSOLUTE NEUTROPHILS# (MANUAL) 3.6 10^3/uL (1.7-8.2); BASOPHILS % (MANUAL) 0 % (0-2); EOSINOPHILS % (MANUAL) 1 % (0-6); LYMPHOCYTES % (MANUAL) 34 % (13-45); MONOCYTES % (MANUAL) 8 % (3-13); PLATELET COMMENT ADEQUATE; SEGMENTED NEUTROPHILS % (MAN) 49 % (42-78); TOTAL CELLS COUNTED 100
--- NOTE | 2018-01-19 22:06 | ER Document Report ---
ED General - General Chief Complaint: Dizziness Stated Complaint: LIGHTHEADED,DIZZY,NAUSEA Time Seen by Provider: 01/19/18 19:56 Notes: Patient is a 27-year-old male with a prior history of alcohol abuse in remission , gastritis with concern of possible gastric ulcer who presents with several weeks of ongoing epigastric abdominal pain as well as nausea and vomiting. He states that when he eats anything other than milk or bread products he develops a stabbing, burning, severe pain to his epigastrium that radiates up into his chest. He has been seen in the emergency department on multiple occasions for this etiology and has a planned endoscopy tomorrow with GI. He states that he came to the emergency department because his pain is uncontrolled and he would like some to help control his pain. He denies any hematemesis, melena or hematochezia. He has no prior abdominal surgical history. He denies anything is new or different about his symptoms today that prompted a return visit to the emergency department. TRAVEL OUTSIDE OF THE [place] IN LAST 30 DAYS: No - Related Data Allergies/Adverse Reactions: No Known Allergies Allergy (Verified 01/19/18 16:21) Past Medical History - General Information source: Patient - Social History Smoking Status: Current Every Day Smoker Chew tobacco use (# tins/day): No Frequency of alcohol use: Occasional Drug Abuse: None Lives with: Spouse/Significant other Family History: Arthritis, Hypertension, Malignancy. denies: CAD, COPD, CVA, DM , Hyperlipidemia, Thyroid Disfunction Patient has suicidal ideation: No Patient has homicidal ideation: No - Past Medical History Cardiac Medical History: Denies: Hx Coronary Artery Disease, Hx Heart Attack, Hx Hypertension Pulmonary Medical History: Reports: Hx Pneumonia Denies: Hx Asthma, Hx Bronchitis, Hx COPD Neurological Medical History: Denies: Hx Cerebrovascular Accident, Hx Seizures Renal/ Medical History: Denies: Hx Peritoneal Dialysis Musculoskeletal Medical History: Denies Hx Arthritis, Reports Hx Musculoskeletal Trauma Psychiatric Medical History: Reports: Hx Depression - Immunizations Hx Diphtheria, Pertussis, Tetanus Vaccination: Yes Review of Systems - Review of Systems Notes: Constitutional: Negative for fever. HENT: Negative for sore throat. Eyes: Negative for visual changes. Cardiovascular: Negative for chest pain. Respiratory: Negative for shortness of breath. Gastrointestinal: Positive for upper abdominal pain nausea and vomiting Genitourinary: Negative for dysuria. Musculoskeletal: Negative for back pain. Skin: Negative for rash. Neurological: Negative for headaches, weakness or numbness. 10 point ROS negative except as marked above and in HPI. Physical Exam - Vital signs Vitals: Temp Pulse Resp BP Pulse Ox 98.5 F 107 H 16 125/73 98 01/19/18 19:11 01/19/18 19:11 01/19/18 19:11 01/19/18 19:11 01/19/18 19:11 Interpretation: Tachycardic Notes: PHYSICAL EXAMINATION: GENERAL: Well-appearing, well-nourished and in no acute distress. HEAD: Atraumatic, normocephalic. EYES: Pupils equal round and reactive to light, extraocular movements intact, sclera anicteric, conjunctiva are normal. ENT: nares patent, oropharynx clear without exudates. Moist mucous membranes. NECK: Normal range of motion, supple without lymphadenopathy LUNGS: Breath sounds clear to auscultation bilaterally and equal. No wheezes rales or rhonchi. HEART: Regular rate and rhythm without murmurs ABDOMEN: Soft, mild epigastric abdominal pain but no other localized tenderness to palpation, normoactive bowel sounds. No guarding, no rebound. No masses appreciated. EXTREMITIES: Normal range of motion, no pitting or edema. No cyanosis. NEUROLOGICAL: No focal neurological deficits. Moves all extremities spontaneously and on command. PSYCH: Normal mood, normal affect. SKIN: Warm, Dry, normal turgor, no rashes or lesions noted. Course - Re-evaluation Re-evalutation: 01/19/18 22:02 Patient presents with epigastric abdominal pain with associated reflux symptoms most consistent with likely gastritis. Patient has no focal abdominal tenderness on examination. Patient had a normal right upper quadrant ultrasound within the past 1 week. Lipase is normal. LFT changes are improving. Based on history and exam, I do not suspect ACS, pulmonary embolus, SBO, mesenteric ischemia, acute pancreatitis, biliary pathology, or an abdominal aortic dissection. Patient has had improvement of symptoms here with a GI cocktail. At this time will discharge with return precautions and follow- up recommendations. Verbal discharge instructions given a the bedside and opportunity for questions given. Medication warnings reviewed. Patient is in agreement with this plan and has verbalized understanding of return precautions and the need for primary care follow-up in the next 24-72 hours. - Vital Signs Vital signs: Temp Pulse Resp BP Pulse Ox 98.5 F 107 H 16 116/83 97 01/19/18 19:11 01/19/18 19:11 01/19/18 19:11 01/19/18 22:51 01/19/18 22:51 - Laboratory Result Diagrams: 01/19/18 20:31 01/19/18 20:31 Laboratory results interpreted by me: 01/19/18 01/19/18 01/19/18 20:31 20:31 21:33 Hgb 18.3 H Hct 51.9 H MCH 33.5 H Potassium 5.2 H Calcium 10.5 H Total Bilirubin 1.9 H Direct Bilirubin 0.8 H AST 93 H ALT 121 H Total Protein 8.7 H Urine Urobilinogen 2.0 H Discharge - Discharge Clinical Impression: Epigastric abdominal pain Gastritis Qualifiers: Gastritis type: unspecified gastritis Chronicity: acute Gastritis bleeding: presence of bleeding unspecified Qualified Code(s): K29.00 - Acute gastritis without bleeding Condition: Good Disposition: HOME, SELF-CARE Additional Instructions: Your symptoms appear to be most consistent with stomach or upper intestinal irritation. Please begin taking famotidine 40 mg in the morning and 40 mg at night. This medicine can be purchased directly [id number]. You may also take medicine such as Pepto-Bismol or Tums to assist with your pain. Please return to emergency department immediately if you have worsening of your pain, shortness of breath, vomiting, become unable to exert yourself due to pain or difficulty breathing, you pass out, or have any pain that radiates into your arms, jaw, or back. Please also return if you have any additional symptoms that are concerning to you. As we have discussed, the most important thing is lifestyle changes. You need to avoid smoking, sodas, tea, coffee, alcohol, spicy foods, and acidic foods such as citrus fruits, tomato based products, berries, and most fruit juices. Referrals: KAYLA FOY NP [NURSE PRACTITIONER] - Follow up as needed
[2018-01-19 22:11] LABS: APPEARANCE,URINE SLIGHTLY-CLOUDY; BILIRUBIN,URINE NEGATIVE (NEGATIVE); COLOR,URINE YELLOW; GLUCOSE, URINE NEGATIVE (NEGATIVE); KETONES,URINE NEGATIVE (NEGATIVE); LEUKOCYTE ESTERASE,URINE NEGATIVE (NEGATIVE); NITRITE,URINE NEGATIVE (NEGATIVE); PROTEIN,URINE NEGATIVE (NEGATIVE); URINE SPECIFIC GRAVITY 1.027
[2018-01-19 22:53] VITALS: BP 116/83
== END 2018-01-19 22:21 | disposition home or self-care (01) ==
LOC: ER 18:34
DX: K29.00 Acute gastritis without bleeding (principal); R10.13 Epigastric pain; R11.2 Nausea with vomiting, unspecified; F17.200 Nicotine dependence, unspecified, uncomplicated
CPT/HCPCS: 36415; 80053; 81001; 83690; 85025; 96360; 99284

== ENCOUNTER 2018-01-20 08:32 | Day surgery (SDC) | payer SELFPAY ==
[~2018-01-20 08:32] MED LIST: DIPHENHYDRAMINE HCL 50 MG/ML VIAL ONE; EPINEPHRINE INJ 1 MG/10 ML DISP.SYRIN ONE; FLUMAZENIL INJ 0.5 MG/5 ML VIAL ONE; GLUCAGON,HUMAN RECOMB 1 MG INJ ONE; NALOXONE HCL INJ/PF 0.4 MG/1 ML SDV ONE; ONDANSETRON HCL INJ/PF 4 MG/2 ML SDV ONE
[2018-01-20] MEDS: MIDAZOLAM 2 MG/2 ML INJ ONE ×4 (08:55→09:03)
[2018-01-20] MEDS: FENTANYL CITRATE INJ/PF 100 MCG/2 ML AMPUL ONE ×2 (08:57→09:00)
--- NOTE | 2018-01-20 09:14 | Operative Report ---
Operative Report DATE OF SURGERY: 01/20/18 Operative Report: The risks benefits and alternatives of the procedure explained to the patient in detail and informed consent is obtained.A GIF Olympus video scope was inserted into the patient's mouth and hypopharynx, the esophagus is identified intubated and insufflated, the scope was then advanced through the esophagus stomach and duodenum, retroflexion maneuver is done the esophagus stomach and first and second portions of the duodenum examined PREOPERATIVE DIAGNOSIS: Epigastric pain POSTOPERATIVE DIAGNOSIS: Esophageal ulcer. Gastric ulcer. Duodenitis. Biopsies obtained to rule out for Helicobacter pylori OPERATION: EGD with biopsy SURGEON: ZAID DOWLING ANESTHESIA: Moderate Sedation - 8 mg of Versed, 175 mcg of fentanyl. Conscious sedation monitoring time 30 minutes. TISSUE REMOVED OR ALTERED: As noted above. COMPLICATIONS: None. ESTIMATED BLOOD LOSS: None. INTRAOPERATIVE FINDINGS: As noted above. PROCEDURE: Patient tolerated the procedure well. No immediate postprocedure comp occasions are noted. Patient is discharged in good condition. Discharge date 01/20/2018. Discharge diet: Regular. Discharge activity: Regular. 2-3-week follow-up to discuss findings. Patient is instructed call the office or proceed to the emergency room should there be any further problems or questions. Wait on the pathology.
[2018-01-20 10:21] VITALS: BP 116/80
== END 2018-01-20 10:20 | disposition home or self-care (01) ==
LOC: END 08:32
PROVIDERS: ATTEND Internal Medicine Gastroenterology
DX: K29.80 Duodenitis without bleeding (principal); K29.50 Unspecified chronic gastritis without bleeding; K22.10 Ulcer of esophagus without bleeding; K25.9 Gastric ulcer, unspecified as acute or chronic, without hemorrhage or perforation; F17.210 Nicotine dependence, cigarettes, uncomplicated; Z79.899 Other long term (current) drug therapy
CPT/HCPCS: 43239; 88305 ×2; J2250; J3010; J0171; J1200; J1610; J2310; J2405; J3490

== ENCOUNTER 2018-08-09 11:09 | Emergency (ER) | payer SELFPAY ==
[2018-08-09 11:22] VITALS: BP 126/84
--- NOTE | 2018-08-09 13:05 | ER Document Report ---
ED Extremity Problem, Lower - General Chief Complaint: Toe Injury Stated Complaint: RIGHT FOOT PAIN Time Seen by Provider: 08/09/18 12:44 Primary Care Provider: [facility] [Provider Group] - Follow up tomorrow Mode of Arrival: Ambulatory Information source: Patient Notes: 28-year-old male presented to ED for complaint of pain to his right great toe for the past week. He states he tried to kick a cinderblock a week ago injuring his great toe. He states he has been taken off week all week and kept his foot elevated and iced and taken Tylenol and Motrin but it continues to swell and be painful. He did show me a picture of his foot up in the air where he had been keeping his foot up. Patient states he has not followed up with a provider as yet. Patient is alert oriented respirations regular and unlabored is able to walk but with a lot of pain. TRAVEL OUTSIDE OF THE [place] IN LAST 30 DAYS: No - HPI Patient complains to provider of: Injury, Pain, Swelling Location: Great Toe - Right Occurred: Last week Where: Outdoors Onset/Duration: Sudden, Persistent Quality of pain: Sharp, Throbbing Severity: Moderate Pain Level: 4 Context: Other - Kicked a cinderblock Recent injury: Yes Associated symptoms: Painful ambulation Exacerbated by: Hanging down, Movement, Walking Relieved by: Elevation, Ice, Rest - Related Data Allergies/Adverse Reactions: No Known Allergies Allergy (Verified 08/09/18 11:10) Past Medical History - General Information source: Patient - Social History Smoking Status: Current Every Day Smoker Cigarette use (# per day): Yes - 1/2 pack/day Chew tobacco use (# tins/day): Yes Smoking Education Provided: Yes - 4 minutes Frequency of alcohol use: Heavy - 1 or more beer a day Drug Abuse: None Occupation: Construction Lives with: Spouse/Significant other Family History: Arthritis, Hypertension, Malignancy. denies: CAD, COPD, CVA, DM, Hyperlipidemia, Thyroid Disfunction Patient has suicidal ideation: No Patient has homicidal ideation: No - Past Medical History Cardiac Medical History: Reports: None Pulmonary Medical History: Reports: Hx Pneumonia EENT Medical History: Reports: None Neurological Medical History: Reports: None Endocrine Medical History: Reports: None Renal/ Medical History: Reports: None Malignancy Medical History: Reports None GI Medical History: Reports: Hx Gastroesophageal Reflux Disease, Hx Ulcer, Hx Endoscopy Musculoskeletal Medical History: Reports Hx Musculoskeletal Trauma Skin Medical History: Reports None Psychiatric Medical History: Reports: Hx Depression Traumatic Medical History: Reports: None Infectious Medical History: Reports: None - Immunizations Hx Diphtheria, Pertussis, Tetanus Vaccination: Yes - 2018 Review of Systems - Review of Systems Constitutional: No symptoms reported EENT: No symptoms reported Cardiovascular: No symptoms reported Respiratory: No symptoms reported Gastrointestinal: No symptoms reported Genitourinary: No symptoms reported Male Genitourinary: No symptoms reported Musculoskeletal: Other - Right great toe Skin: Other - Swelling and ecchymosis to the right great toe Hematologic/Lymphatic: No symptoms reported Neurological/Psychological: No symptoms reported -: Yes All other systems reviewed and negative Physical Exam - Vital signs Vitals: Temp Pulse Resp BP Pulse Ox 98.3 F 97 16 126/84 H 96 08/09/18 11:20 08/09/18 11:20 08/09/18 11:20 08/09/18 11:20 08/09/18 11:20 Interpretation: Normal - General General appearance: Appears well, Alert - HEENT Head: Normocephalic, Atraumatic Eyes: Normal Pupils: PERRL - Respiratory Respiratory status: No respiratory distress Chest status: Nontender Breath sounds: Normal Chest palpation: Normal - Cardiovascular Rhythm: Regular Heart sounds: Normal auscultation Murmur: No - Abdominal Inspection: Normal Distension: No distension Bowel sounds: Normal Tenderness: Nontender Organomegaly: No organomegaly - Back Back: Normal, Nontender - Extremities General upper extremity: Normal inspection, Nontender, Normal color, Normal ROM, Normal temperature General lower extremity: Normal ROM, Normal temperature, Normal weight bearing. No: Jose David's sign Foot: Tender, Ecchymosis, Edema, No evidence of FB, Other - Right great toe. No: Instability, Laceration, Metatarsal compress. pain, Nail injury, Navicular tenderness, Puncture wound, Tender 5th metatarsal, Unable to bear weight - Neurological Neuro grossly intact: Yes Cognition: Normal Orientation: AAOx4 [place] Coma Scale Eye Opening: Spontaneous [place] Coma Scale Verbal: Oriented [place] Coma Scale Motor: Obeys Commands [place] Coma Scale Total: 15 Speech: Normal Motor strength normal: LUE, RUE, LLE, RLE Sensory: Normal - Psychological Associated symptoms: Normal affect, Normal mood - Skin Skin Temperature: Warm Skin Moisture: Dry Skin Color: Normal, Ecchymosis Skin Turgor: Edematous Location of irregularity: Extremities - Right great toe Irregularity with: Swelling, Tenderness Course - Re-evaluation Re-evalutation: 08/09/18 22:21 Right great toe was sree taped to the left toe. Patient has a comminuted nondisplaced fracture to the right great toe that occurred about 3-4 days ago. Patient has been elevating and icing the foot at home. Patient was treated with medication and instructed to follow-up with primary care doctor and orthopedics for this fractured great toe. Patient verbalized understanding and agreement with treatment plan patient was discharged home. - Vital Signs Vital signs: Temp Pulse Resp BP Pulse Ox 98.1 F 89 20 126/84 H 97 08/09/18 14:10 08/09/18 14:10 08/09/18 14:10 08/09/18 14:10 08/09/18 14:10 - Diagnostic Test Radiology reviewed: Image reviewed, Reports reviewed Procedures - Immobilization Right Toe Great toe Time completed: 14:10 Immobilizer type: Post-op shoe, Other - sree tape Performed by: Provider assisted, PCT Post-Proc Neuro Vasc Exam: Normal Alignment checked and good: Yes Discharge - Discharge Clinical Impression: Fracture of right great toe Qualifiers: Encounter type: initial encounter Fracture type: closed Phalanx: proximal Fracture alignment: nondisplaced Qualified Code(s): S92.414A - Nondisplaced fracture of proximal phalanx of right great toe, initial encounter for closed fracture Condition: Stable Disposition: HOME, SELF-CARE Instructions: Family Physicians / Practices Additional Instructions: Fractured Toe You have fractured your toe. Although this fracture doesn't need a cast or splint, emergency evaluation was needed to assess the straightness of the bones and joints. Reduction ("setting") is necessary for toe fractures which are crooked or twisted. A toe fracture will heal in about three weeks. Usually, the fractured toe is taped to the next toe. The second toe acts as a moving splint to protect the broken one. Ice and elevation help during the first 48 hours. You may need crutches at first if walking is painful. When you begin walking, be careful NOT to do things that hurt. If weight bearing is not comfortable within a few days, you may require a special shoe, walking boot, or cast. Call the doctor or return at once if severe swelling, severe pain, or numbness develop in the toe, or if you suspect you may have re-injured it. Acetaminophen Acetaminophen may be taken for pain relief or fever control. It's much safer than aspirin, offering a wider range of "safe" dosages. It is safe during . Some brand names are Tylenol, Panadol, Datril, Anacin 3, Tempra, and Liquiprin. Acetaminophen can be repeated every four hours. The following are maximum recommended dosages: WEIGHT Dose Drops Elixir Chewable(80mg) (LBS.) drprs=droppers tsp=teaspoon 6 40 mg .4 ml (1/2) 6-11 80 mg .8 ml (full) 1/2 tsp 1 tab 12-16 120 mg 1 1/2 drprs 3/4 tsp 1 1/2 tabs 17-23 160 mg 2 drprs 1 tsp 2 tabs 24-30 240 mg 3 drprs 1 1/2 tsp 3 tabs 30-35 320 mg 2 tsp 4 tabs 36-41 360 mg 2 1/4 tsp 4 1/2 tabs 42-47 400 mg 2 1/2 tsp 5 tabs 48-53 480 mg 3 tsp 6 tabs 54-59 520 mg 3 1/4 tsp 6 1/2 tabs 60-64 560 mg 3 1/2 tsp 7 tabs 65-70 600 mg 3 3/4 tsp 7 1/2 tabs 71-76 640 mg 4 tsp 8 tabs 77-82 720 mg 4 1/2 tsp 9 tabs 83-88 800 mg 5 tsp 10 tabs >89 pounds or adults 650 mg to 900 mg Acetaminophen can be repeated every four hours. Maximum daily dose not to exceed 4000 mg. These maximum recommended dosages are slightly higher than the dosages written on the product container, but these dosages are very safe and well below the toxic dosage for acetaminophen. Ibuprofen Ibuprofen is an excellent, safe drug for pain control. In addition, it has potent antiinflammatory effects which are beneficial, especially in the treatment of injuries, arthritis, or tendonitis. It's best to take ibuprofen with food. Persons with ulcer disease or allergy to aspirin should notify their physician of this before taking ibuprofen. Take the medication exactly as prescribed. Don't take additional doses unless instructed to do so by your doctor. If you develop wheezing, shortness of breath, hives, faintness, stomach pain, vomiting, or dark black stools, return for re-evaluation at once. Ice & Elevation Apply ice packs frequently against the painful area. Many different schedules are recommended, such as "20 minutes on, 20 minutes off" or "one hour ice, two hours rest." If you need to work, you may need to go longer between ice treatments. You should plan to have the area ice packed AT LEAST one-fourth of the time. The ice should be applied over the wrap, tape, or splint, or over a layer of cloth -- not directly against the skin. Some ice bags have a built-in cloth and can be put directly on the skin. Your injured part should be elevated as much as possible over the next 48 hours. Try to keep the injury above the level of the heart. Avoid use of the injured area. Elevation and rest will decrease the swelling. Post-Op Shoe You are to use a "post-op shoe," sometimes also called a "bunnion shoe." This shoe helps protect minor fractures, sprains, and other injuries of the toes or foot. You may remove the shoe for bathing. Walk carefully. If you're feeling pain, put less weight on the foot, take smaller steps, or use a cane. If you have a new injury, you may need to use crutches for the first couple of days. If pain still prevents walking after a few days, contact the doctor. If there's unexpected pain in your foot, if blisters or sore spots develop, or if the shoe is physically coming apart, return at once. Remember that you're welcome to come in at any time to have the fit of the shoe checked and adjusted. FOLLOW-UP CARE: If you have been referred to a physician for follow-up care, call the physicians office for an appointment as you were instructed or within the next two days. If you experience worsening or a significant change in your symptoms, notify the physician immediately or return to the Emergency Department at any t angelo for re-evaluation. Forms: Elevated Blood Pressure, Smoking Cessation Education, Return to Work Referrals: [facility] [Provider Group] - Follow up tomorrow
--- NOTE | 2018-08-09 13:22 | RADIOLOGY REPORT (SQ) ---
EXAM DESCRIPTION: TOE RIGHT COMPLETED DATE/TIME: 08/09/2018 1:11 pm REASON FOR STUDY: kicked a brick COMPARISON: None. NUMBER OF VIEWS: Three views. TECHNIQUE: AP, lateral, and oblique images acquired of the right first toe. LIMITATIONS: None. FINDINGS: MINERALIZATION: Normal. BONES: There appears to be a comminuted nondisplaced fracture of the 1st proximal phalanx that extend s to very distal articular surface. There also appears to be a nondisplaced fracture involving the b ase of the 1st distal phalanx. JOINTS: No effusions. SOFT TISSUES: No soft tissue swelling. No foreign body. OTHER: No other significant finding. IMPRESSION: Nondisplaced fractures of the great toe. COMMENT: SITE OF TRAUMA/COMPLAINT MARKED/STAMP COMPLETED: No TECHNICAL DOCUMENTATION: JOB ID: [id number] [employer]- All Rights Reserved Reading location - IP/workstation name: [email or web address]
== END 2018-08-09 14:12 | disposition home or self-care (01) ==
LOC: ER 11:09
DX: S92.414A Nondisplaced fracture of proximal phalanx of right great toe, initial encounter for closed fracture (principal); F17.210 Nicotine dependence, cigarettes, uncomplicated; W22.09XA Striking against other stationary object, initial encounter
CPT/HCPCS: 99283; 99406

== ENCOUNTER 2019-05-25 10:45 | Emergency (ER) | payer SELFPAY ==
--- NOTE | 2019-05-25 12:16 | ER Document Report ---
ED Respiratory Problem - General Chief Complaint: Cold Symptoms Stated Complaint: COLD SYMPTOMS Time Seen by Provider: 05/25/19 12:11 Primary Care Provider: [facility] [Provider Group] - Follow up as needed [facility] [Provider Group] - Follow up as needed [facility] [Provider Group] - Follow up as needed Mode of Arrival: Ambulatory Information source: Patient Notes: 28-year-old male presented to ED for complaint of cough cold congestion for the last 3 days he states he has been using Mucinex DM. He does smoke half a pack a day drinks daily 2-3 shots a day. And does work in construction. He states he has had a history of pneumonia and bronchitis. TRAVEL OUTSIDE OF THE [place] IN LAST 30 DAYS: No - HPI Patient complains to provider of: Cough Onset: Other Duration: Intermittent episodes - 2 to 3 days Initiating Event: URI Quality of pain: Achy Severity: Mild Pain Level: 1 Context: Smoker Short of Breath: Mild Cough: Nonproductive Sputum amount: None Associated symptoms: Congestion, Cough, PND, Runny nose, Sinus pain/pressure, Short of breath Similar symptoms previously: Yes Recently seen / treated by doctor: No - Related Data Allergies/Adverse Reactions: No Known Allergies Allergy (Verified 08/09/18 11:10) Past Medical History - General Information source: Patient - Social History Smoking Status: Current Every Day Smoker Cigarette use (# per day): Yes - Half pack a day Smoking Education Provided: Yes - 4 minutes Frequency of alcohol use: Heavy - 2-3 shots a day Drug Abuse: None Occupation: Construction Lives with: Alone Family History: Arthritis, Hypertension, Malignancy. denies: CAD, COPD, CVA, DM, Hyperlipidemia, Thyroid Disfunction - Past Medical History Cardiac Medical History: Reports: None Pulmonary Medical History: Reports: Hx Bronchitis, Hx Pneumonia EENT Medical History: Reports: None Neurological Medical History: Reports: None Endocrine Medical History: Reports: None Malignancy Medical History: Reports None GI Medical History: Reports: Hx Gastroesophageal Reflux Disease, Hx Ulcer, Hx Endoscopy Musculoskeletal Medical History: Reports Hx Musculoskeletal Trauma Skin Medical History: Reports None Psychiatric Medical History: Reports: Hx Depression Traumatic Medical History: Reports: None Infectious Medical History: Reports: None Surgical Hx: Negative Past Surgical History: Reports: None - Immunizations Hx Diphtheria, Pertussis, Tetanus Vaccination: Yes - 2018 Review of Systems - Review of Systems Constitutional: Chills, Recent illness EENT: Nose congestion, Nose discharge, Sinus pressure, Sinus discharge, Throat pain Cardiovascular: No symptoms reported Respiratory: Cough Gastrointestinal: No symptoms reported Genitourinary: No symptoms reported Male Genitourinary: No symptoms reported Musculoskeletal: No symptoms reported Skin: No symptoms reported Hematologic/Lymphatic: No symptoms reported Neurological/Psychological: No symptoms reported -: Yes All other systems reviewed and negative Physical Exam - Vital signs Vitals: Temp Pulse Resp BP Pulse Ox 98.4 F 75 16 133/84 H 96 05/25/19 11:48 05/25/19 11:48 05/25/19 11:48 05/25/19 11:48 05/25/19 11:48 Interpretation: Normal - General General appearance: Appears well, Alert - HEENT Head: Normocephalic, Atraumatic Eyes: Normal Pupils: PERRL Ears: Normal External canal: Normal Tympanic membrane: Normal Sinus: Normal Nasal: Purulent discharge, Swelling Mouth/Lips: Normal Mucous membranes: Normal Pharynx: Post nasal drainage Neck: Normal - Respiratory Respiratory status: No respiratory distress Chest status: Nontender Breath sounds: Nonproductive cough Chest palpation: Normal - Cardiovascular Rhythm: Regular Heart sounds: Normal auscultation Murmur: No - Abdominal Inspection: Normal Distension: No distension Bowel sounds: Normal Tenderness: Nontender Organomegaly: No organomegaly - Back Back: Normal, Nontender - Extremities General upper extremity: Normal inspection, Nontender, Normal color, Normal ROM, Normal temperature General lower extremity: Normal inspection, Nontender, Normal color, Normal ROM, Normal temperature, Normal weight bearing. No: Jose David's sign - Neurological Neuro grossly intact: Yes Cognition: Normal Orientation: AAOx4 [place] Coma Scale Eye Opening: Spontaneous [place] Coma Scale Verbal: Oriented [place] Coma Scale Motor: Obeys Commands [place] Coma Scale Total: 15 Speech: Normal Motor strength normal: LUE, RUE, LLE, RLE Sensory: Normal - Psychological Associated symptoms: Normal affect, Normal mood - Skin Skin Temperature: Warm Skin Moisture: Dry Skin Color: Normal Course - Re-evaluation Re-evalutation: 05/25/19 22:17 X-ray showed left lower lobe infiltrates. Patient was on prescription for azithromycin and instructed to follow-up with his primary care doctor. Patient verbalized understanding and agreement with treatment plan. He states he figured he had pneumonia the way he felt. - Vital Signs Vital signs: Temp Pulse Resp BP Pulse Ox 98.8 F 72 16 146/83 H 96 05/25/19 13:12 05/25/19 13:12 05/25/19 13:12 05/25/19 13:12 05/25/19 13:12 - Diagnostic Test Radiology reviewed: Image reviewed, Reports reviewed Discharge - Discharge Clinical Impression: Left lower lobe pneumonia Qualifiers: Pneumonia type: due to unspecified organism Qualified Code(s): J18.9 - Pneumonia, unspecified organism Condition: Stable Disposition: HOME, SELF-CARE Additional Instructions: PNEUMONIA: Your examination indicates that you have pneumonia. This is an infection of the lung tissue, usually caused by bacteria or a virus. Symptoms include cough, fever, shaking chills, chest pain, shortness of breath, and coughing up bloody sputum. Treatment for bacterial pneumonia includes rest, antibiotics for 10 to 14 days, increasing your clear liquid intake, a cool mist humidifier at your bedside, and fever medication. Often, a repeat chest X-ray is performed in a few weeks--even if you feel better--to ascertain whether the infection has completely resolved and no underlying lung problem is present. You should call the physician if you develop persistent vomiting, high fever that does not respond to fever medication, increasing shortness of breath, confusion, or lethargy. Also, failure to improve within two to three days is an indication for re-examination. AZITHROMYCIN: Azithromycin (Zithromax) is a broad spectrum antibiotic in the same class as erythromycin. It can treat a variety of bacterial infections, but is most frequently used for respiratory infections. Azithromycin is extremely long-lasting. It accumulates in body tissues and continues to kill bacteria for many days. In order to improve absorption, Azithromycin should be taken at least one hour before or two hours after a meal. It does not have the same strong tendency to upset the stomach as erythromycin and is usually very well tolerated. Patients who have had a rash or other true allergic reactions to erythromycin should not take this medication. Call if you develop gastrointestinal distress, severe diarrhea, rash, hives, itching, or shortness of breath. USE OF ACETAMINOPHEN (Tylenol): Acetaminophen may be taken for pain relief or fever control. It's much safer than aspirin, offering a wider range of "safe" dosages. It is safe during . Some brand names are Tylenol, Panadol, Datril, Anacin 3, Tempra, and Liquiprin. Acetaminophen can be repeated every four hours. The following are maximum recommended dosages: WEIGHT Dose Drops Elixir Chewable(80mg) (LBS.) drprs=droppers tsp=teaspoon 6 40 mg 0.4 ml (1/2) 6-11 80 mg 0.8 ml (full) tsp 1 tab 12-16 120 mg 1 1/2 drprs 3/4 tsp 1 1/2 tabs 17-23 160 mg 2 drprs 1 tsp 2 tabs 24-30 240 mg 3 drprs 1 1/2 tsp 3 tabs 30-35 320 mg 2 tsp 4 tabs 36-41 360 mg 2 1/4 tsp 4 1/2 tabs 42-47 400 mg 2 1/2 tsp 5 tabs 48-53 480 mg 3 tsp 6 tabs 54-59 520 mg 3 1/4 tsp 6 1/2 tabs 60-64 560 mg 3 1/2 tsp 7 tabs 65-70 600 mg 3 3/4 tsp 7 1/2 tabs 71-76 640 mg 4 tsp 8 tabs 77-82 720 mg 4 1/2 tsp 9 tabs 83-88 800 mg 5 tsp 10 tabs >89 pounds or adults 650 mg to 900 mg Acetaminophen can be repeated every four hours. Maximum dose not to exceed 4000 mg a day. These maximum recommended dosages are slightly higher than the dosages written on the product container, but these dosages are very safe and below the toxic dosage for acetaminophen. FOLLOW-UP CARE: If you have been referred to a physician for follow-up care, call the physicians office for an appointment as you were instructed or within the next two days. If you experience worsening or a significant change in your symptoms, notify the physician immediately or return to the Emergency Department at any time for re-evaluation. Prescriptions: Azithromycin [Zithromax 250 mg Tablet] 250 mg PO ASDIR PRN #6 tablet PRN Reason: Forms: Elevated Blood Pressure, Smoking Cessation Education, Return to Work Referrals: [facility] [Provider Group] - Follow up as needed [facility] [Provider Group] - Follow up as needed [facility] [Provider Group] - Follow up as needed
--- NOTE | 2019-05-25 12:37 | RADIOLOGY REPORT (SQ) ---
EXAM DESCRIPTION: CHEST 2 VIEWS COMPLETED DATE/TIME: 05/25/2019 12:26 pm REASON FOR STUDY: Cough congestion COMPARISON: PA and lateral views of the chest from 03/15/2015. EXAM PARAMETERS: NUMBER OF VIEWS: Two views. TECHNIQUE: An AP view of the chest was obtained.. RADIATION DOSE: NA LIMITATIONS: none FINDINGS: LUNGS AND PLEURA: Patchy asymmetric parenchymal opacities in the left retrocardiac space. There is no pleural effusion or pneumothorax. MEDIASTINUM AND HILAR STRUCTURES: No mediastinal or hilar contour abnormality. HEART AND VASCULAR STRUCTURES: The cardiac silhouette and pulmonary vasculature are within normal kaplan its. BONES: No acute findings. HARDWARE: None in the chest. OTHER: No other finding. IMPRESSION: Patchy asymmetric parenchymal opacities in the left retrocardiac space. Correlate with clinical signs and symptoms to exclude a left lower lobe pneumonia. TECHNICAL DOCUMENTATION: JOB ID: [id number] [employer]- All Rights Reserved Reading location - IP/workstation name: [email or web address]
[2019-05-25 13:16] VITALS: BP 146/83
== END 2019-05-25 13:33 | disposition home or self-care (01) ==
LOC: ER 10:45
DX: J18.9 Pneumonia, unspecified organism (principal); R05 Cough; R09.82 Postnasal drip; R09.89 Other specified symptoms and signs involving the circulatory and respiratory systems; J34.89 Other specified disorders of nose and nasal sinuses; R06.02 Shortness of breath; R68.83 Chills (without fever); R09.81 Nasal congestion; R07.0 Pain in throat; F17.210 Nicotine dependence, cigarettes, uncomplicated; Z71.6 Tobacco abuse counseling
CPT/HCPCS: 71046; 99283; 99406